=== PATIENT | male | born 1950 | race Caucasian/White ===

== ENCOUNTER 2025-01-24 10:46 | Day surgery (SDC) | payer OTHER, SELFPAY ==
[2025-01-24 11:02] VITALS: BP 143/90; PULSE 74; RESP 18; TEMP 36; O2SAT 97
[2025-01-24] MEDS: Tropicam./Phenyleph. (1/2.5%) 5 ML BTL OS ×3 (11:28→11:48)
--- NOTE | 2025-01-24 12:05 | W.ANESPRE ---
General Info Date of Service Date Performed: 01/24/25 Height: 6 ft 2 in Weight: 108.9 kg Body Mass Index (BMI): 30.8 Surgical Procedure: Operation Date: 01/24/25 13:40 Proposed Procedure Side Surgeon p Cataract Extraction with IOL Implant Left Timo Bullock MD Meds Allergies and Home Medications Allergies Allergy/AdvReac Type Severity Reaction Status Date / Time No Known Allergies Allergy Verified 01/24/25 11:29 Home Medication ?Medication ?Instructions ?Recorded allopurinol 300 mg tablet 300 mg PO DAILY 01/22/25 aspirin 81 mg capsule 81 mg PO DAILY 01/22/25 atorvastatin 10 mg tablet (Lipitor) 10 mg PO DAILY 01/22/25 clopidogrel 75 mg tablet 75 mg PO DAILY 01/22/25 diclofenac sodium 3 % topical gel 1 applic topical BID PRN 01/22/25 (Solaraze) eplerenone 25 mg tablet 25 mg PO DAILY 01/22/25 losartan 100 mg tablet (Cozaar) 100 mg PO DAILY 01/22/25 omega 9-neh-mrf-fish oil 1,000 mg 1 cap PO DAILY 01/22/25 (120 mg-180 mg) capsule (Fish Oil) terbinafine HCl 1 % topical cream 1 applic topical BID 01/22/25 terbinafine HCl 250 mg tablet 250 mg PO DAILY 01/22/25 tiotropium 2.5 mcg-olodaterol 2.5 2 puff inhalation DAILY 01/22/25 mcg/actuation mist for inhalation multivitamin (Daily Multi-Vitamin 1 tab PO DAILY 01/23/25 tablet) Current Visit Medications: Current Medications Generic Name Dose Route Start Last Admin Trade Name [id number] PRN Reason Stop Dose Admin Acetaminophen 1,000 mg 01/24/25 06:00 Acetaminophen 500 Mg Tab PO 02/23/25 05:59 Q4H PRN PRN Balanced Salt Solution 500 ml 01/24/25 06:00 Balanced Salt Soln.-Plus 500 Ml Bag OP 02/23/25 05:59 DIRECTED SHAWN Miscellaneous Medication 0 ml 01/24/25 06:00 Prednisolone 1%, Moxifloxacin 0.5%, Bromfenac 0.09% 5.6ml Btl OS 02/23/25 05:59 DIRECTED SHAWN Miscellaneous Medication 0 ml 01/24/25 06:00 01/24/25 11:48 Tropicam./Phenyleph. (1/2.5%) 5 Ml Btl OS 02/23/25 05:59 1 drp DIRECTED SHAWN Administration Tetracaine HCl 0 ml 01/24/25 06:00 Tetracaine 0.5% 4 Ml Btl OS 02/23/25 05:59 DIRECTED SHAWN PFSH Active Problems Active Problems: Problem Status Onset Code Posterior subcapsular age-related cataract of left eye Acute H25.042 Nuclear age-related cataract, left eye Acute H25.12 Medical History Medical History Gout Seborrheic keratosis Idiopathic peripheral neuropathy Erectile dysfunction Vitamin D deficiency Sensorineural hearing loss (SNHL) of both ears Elevated cholesterol with high triglycerides Cataract Left knee pain FLORES (dyspnea on exertion) Arthralgia of left ankle History of branch retinal vein occlusion (BRVO) Dry eye syndrome Angiopathy Retinal hole 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 ETD (eustachian tube dysfunction) Multiple lung nodules Thyroid nodule Gynecomastia Surgical History Surgical History H/O colonoscopy Tobacco Smoking/Tobacco Use Status: Former Tobacco Use Passive smoking exposure: No Alcohol Alcohol Intake: former Substance Use Substance use type: does not use Vital Signs and Lab Results Vital Signs Most Recent Vital Signs in EMR: Most Recent Vital Signs Temp Pulse Resp BP Pulse Ox 36 C L 74 18 143/90 H 97 01/24/25 11:02 01/24/25 11:02 01/24/25 11:02 01/24/25 11:02 01/24/25 11:02 Anesthesia Assessment and Plan Anesthesia History Personal History: No History of Anesthesia Complications Family History: No Family History of Anesthesia Complications Exercise Tolerance Exercise Tolerance: Metabolic Equivalents>4 Pertinent Negatives Pertinent Negatives: No Symptoms of GERD Cardiac & Pulmonary Exam Cardiac Exam: Normal S1/S2 Heart Sounds Pulmonary Exam: Clear Bilateral Breath Sounds Implantable Cardiac Device Does patient have a Pacemaker or an ICD?: No Airway Exam Known Difficult Airway: No Mallampati Class: 2 Mouth Opening: Normal (> 3cm) Thyromental Distance: Greater than 3 cm Neck Range of Motion: Full ROM Neck Circumference: Normal Teeth Condition: Normal Dentition ASA Classification ASA Score: ASA 3 Emergency Case?: No NPO Status NPO Status: NPO Clears >2 hours, Solids >8 hours Anesthesia Plan Resuscitation Status: Full Code Anesthesia Technique: MAC Anesthesia Airway Planned: Natural Airway Monitors Used: Standard Monitors
[2025-01-24 12:31] VITALS: BMI 30.8
[2025-01-24] MEDS: Povidone-Iodine Ophth 30 ML BTL (12:33)
[2025-01-24] MEDS: Tetracaine 0.5% 4 ML BTL OS (12:33)
[2025-01-24] MEDS: Phenylephrine/Lidocaine (15/10) MG/ML 1 ML VIAL (12:39)
[2025-01-24] MEDS: Lidocaine 1% Pres-Free 5 ML VIAL (12:40)
[2025-01-24] MEDS: Balanced Salt Soln.-PLUS 500 ML BAG OP (12:40)
[2025-01-24] MEDS: Duovisc Viscoelastic System EACH 1 EACH (12:40)
[2025-01-24] MEDS: Moxifloxacin-PF 1 MG/ML VIAL (12:50)
[2025-01-24] MEDS: Prednisolone 1%, Moxifloxacin 0.5%, Bromfenac 0.09% 5.6ML BTL OS (12:53)
[2025-01-24 13:00] VITALS: BP 159/92; PULSE 71; RESP 16; TEMP 36.5; O2SAT 97
--- NOTE | 2025-01-24 13:01 | W.PM.DSUDISC ---
Date of service: 01/24/25 Discharge Plan Disposition Patient Disposition: Home Discharge Details Attending Provider: Timo Bullock Primary Care Provider: [facility] Home Meds and New Rx's Prescriptions: No Action allopurinol 300 mg tablet 300 mg PO DAILY atorvastatin [Lipitor] 10 mg tablet 10 mg PO DAILY clopidogrel 75 mg tablet 75 mg PO DAILY diclofenac sodium [Solaraze] 3 % gel 1 applic topical BID PRN eplerenone 25 mg tablet 25 mg PO DAILY losartan [Cozaar] 100 mg tablet 100 mg PO DAILY tiotropium-olodaterol 2.5-2.5 mcg/actuation mist 2 puff inhalation DAILY terbinafine HCl 1 % cream 1 applic topical BID terbinafine HCl 250 mg tablet 250 mg PO DAILY aspirin 81 mg capsule 81 mg PO DAILY omega 2-waq-ijv-fish oil [Fish Oil] 1,000 (120-180) mg capsule 1 cap PO DAILY multivitamin [Daily Multi-Vitamin] Tablet 1 tab PO DAILY Discharge Instructions Stand Alone Forms: DSU Post-Op Shira Beltrán (DSU) DS: Diagnosis Discharge Diagnosis (1) Posterior subcapsular age-related cataract of left eye: Status: Resolved (2) Nuclear age-related cataract, left eye: Status: Resolved
--- NOTE | 2025-01-24 13:02 | ROE_ITS ---
Operative Note Operative Note PRE-OP DIAGNOSIS: Nuclear/posterior subcapsular cataract, left eye POST-OP DIAGNOSIS: same PROCEDURE: Cataract extraction using phacoemulsification with intraocular lens implant, left eye SURGEON: Timo Bullock ANESTHESIA TYPE: Local By Surgeon and MAC Refer to Anesthesia Record PATHOLOGY: none sent COMPLICATIONS: None Patient was transported to: same day Patient's condition: stable Implants: Benito Clareon [id number] Indications: Progressive decreased vision due to cataract, left eye Procedure Description: CATARACT SURGERY OPERATIVE REPORT PREOPERATIVE DIAGNOSIS: Nuclear/posterior subcapsular cataract, left eye POSTOPERATIVE DIAGNOSIS: Same OPERATION: Cataract extraction using phacoemulsification with posterior chamber intraocular lens implant, left eye. IOL: IOL Career Agent/Model: Benito Clareon [id number] IOL Power: + 22.0 diopters IOL Serial Number: [id number] Optic Diameter: 6.0mm Haptic/Overall Diameter: 13.0mm PHACO INFO: Benito Centurion Vision System with OZil and Active Fluidics Cumulative Dispersed Energy (CDE): 5.36 seconds SURGEON: Timo Bullock MD, THOM ANESTHESIA: Monitored Anesthesia Care (MAC), with local sub-tenon's anesthetic infiltration COMPLICATIONS: None SPECIMENS: None INDICATIONS FOR PROCEDURE: The patient is a 74-year-old male with history of diminished visual acuity in his left eye secondary to the development of nuclear/cortical cataract. He is significantly symptomatic that he desires cataract surgery and attempt to improv e and maximize his vision. The option of cataract surgery was offered to the patient and he wished to proceed. See office notes for detailed information. PROCEDURE: The correct surgical eye was identified and marked as the left eye and the pupil was dilated in the preoperative area using mydriatics and cycloplegics. The dilated pupil size was 7.0 mm. The patient elected to proceed without oral sedation. The patient was brought to the operating room where cardiopulmonary monitoring was instituted and surgical time-out was performed, confirming the correct operative eye and IOL power. Topical anesthesia was administered and ophthalmic povidone-iodine 5% was instilled into the conjunctival fornices. The mariama-ocular area was prepped with Betadine 10% solution and draped in the usual sterile fashion for intraocular surgery, including an aperture drape. A Tegaderm transparent film dressing was cut in half and used to cover the lashes and lid margins. Care was taken to sequester the lashes and lid margins under the Tegaderm dressing. A lid speculum was placed between the lids of the operative eye and the Benito Lux[employer] Revalia operating microscope was maneuvered into position. Cris scissors were then used to make a conjunctival buttonhole approximately 6mm posterior to the limbus in the inferonasal quadrant. Blunt dissection was carried out to expose bare sclera, and a blunt-tipped sub-tenon?s anesthesia cannula was introduced and passed posteriorly along the globe where non- preserved plain lidocaine was injected into posterior sub-Tenon?s space. A sideport knife was used to make a paracentesis port. Intraocular phenylephrine/lidocaine was injected into the anterior chamber. The anterior chamber was then filled with viscoelastic. A keratome knife was used construct a two-plane clear corneal tunnel extending 2.0mm into clear cornea. A flap was raised on the anterior capsule and capsulorhexis forceps were used to complete a continuous curvilinear capsulorhexis of 5.5 mm. Balanced salt solution was then used to perform cortical cleaving hydrodissection and nuclear hydrodelineation until the lens could be freely rotated within the capsular bag. The lens nucleus was then disassembled and removed within the capsular bag and iris plane using phacoemulsification. Residual cortical material was removed using the irrigation/aspiration handpiece. The posterior capsule was carefully polished to remove as much residual lens epithelial cells as safely possible. The capsular bag was then inflated and the anterior chamber deepened with viscoelastic. The lens implant described above was inserted into the capsular bag using the Benito Autonome Injector. A Kuglen hook was used to dial the IOL into position. Residual viscoelastic was then removed first from posterior to the IOL, then from the anterior chamber using the I/A handpiece. The lens implant was noted to center nicely within the capsular bag. The incisions were stromally hydrated, and the anterior chamber was reformed using BSS. Then 0.5cc of moxifloxacin 1.0mg/ml were injected into the capsular bag and anterior chamber. The incisions were checked with a Weck spear and found to be secure. Several drops of ophthalmic povidone-iodine 5% were then applied to the eye followed by two drops of combination steroid/NSAID/antibiotic solution. The drapes were rem sivakumar and a clear plastic protective eye shield was placed over the eye. The patient was then returned to Same Day Surgery in stable condition. Date of Procedure: 01/24/25
--- NOTE | 2025-01-24 14:05 | W.ANESPOSTOP ---
Postoperative Evaluation Date, Time and Location Date Performed: 01/24/25 Time Performed: 13:00 Patient Location: Day Surgery Unit Vital Signs Most Recent Imported Vital Signs: Most Recent Vital Signs Temp Pulse Resp BP Pulse Ox 36.5 C 71 16 159/92 H 97 01/24/25 13:00 01/24/25 13:00 01/24/25 13:00 01/24/25 13:00 01/24/25 13:00 Pain Score Most Recent Pain Score: Most Recent Pain Score Pain Level 0 01/24/25 13:00 Assessment Mental Status: Awake (Alert & Oriented to Patient Baseline) Airway and Respiratory Function: Patent airway with normal (patient baseline) respiratory exam Cardiovascular Function: Hemodynamically Stable Hydration Status: Adequately Hydrated Nausea & Vomiting: No Nausea or Vomiting Pain: Pt. Denies Any Pain Peripheral Nerve Block: Patient did not receive a nerve block
== END 2025-01-24 13:17 | disposition home or self-care (01) ==
LOC: SUR 10:51
PROVIDERS: Visit Provider Ophthalmology
PROC: (CPT 66984; principal; 2025-01-24 13:30)
DX: H25.042 Posterior subcapsular polar age-related cataract, left eye (principal); H25.12 Age-related nuclear cataract, left eye
CPT/HCPCS: 66984; 00123; V2632; J2003

== ENCOUNTER 2025-02-07 13:53 | Day surgery (SDC) | payer OTHER, SELFPAY ==
[2025-02-07 14:20] VITALS: BP 148/93; PULSE 68; RESP 16; TEMP 36.4; O2SAT 97
[2025-02-07] MEDS: Tropicam./Phenyleph. (1/2.5%) 5 ML BTL OD ×3 (14:23→14:37)
[2025-02-07 15:20] VITALS: BMI 30.7
--- NOTE | 2025-02-07 15:20 | W.ANESPRE ---
General Info Date of Service Date Performed: 02/07/25 Height: 6 ft 2 in Weight: 108.5 kg Body Mass Index (BMI): 30.7 Surgical Procedure: Operation Date: 02/07/25 14:25 Proposed Procedure Side Surgeon p Cataract Extraction with IOL Implant Right Timo Bullock MD Actual Procedure Side Surgeon p Cataract Extraction with IOL Implant Right Timo Bullock MD Pre-Op Diagnosis Post-Op Diagnosis CATARACT OD CATARACT OD Meds Allergies and Home Medications Allergies Allergy/AdvReac Type Severity Reaction Status Date / Time No Known Allergies Allergy Verified 02/07/25 14:29 Home Medication ?Medication ?Instructions ?Recorded allopurinol 300 mg tablet 300 mg PO DAILY 01/22/25 aspirin 81 mg capsule 81 mg PO DAILY 01/22/25 atorvastatin 10 mg tablet (Lipitor) 10 mg PO DAILY 01/22/25 clopidogrel 75 mg tablet 75 mg PO DAILY 01/22/25 diclofenac sodium 3 % topical gel 1 applic topical BID PRN 01/22/25 (Solaraze) eplerenone 25 mg tablet 25 mg PO DAILY 01/22/25 losartan 100 mg tablet (Cozaar) 100 mg PO DAILY 01/22/25 omega 1-dhj-fti-fish oil 1,000 mg 1 cap PO DAILY 01/22/25 (120 mg-180 mg) capsule (Fish Oil) terbinafine HCl 1 % topical cream 1 applic topical BID 01/22/25 terbinafine HCl 250 mg tablet 250 mg PO DAILY 01/22/25 tiotropium 2.5 mcg-olodaterol 2.5 2 puff inhalation DAILY 01/22/25 mcg/actuation mist for inhalation multivitamin (Daily Multi-Vitamin 1 tab PO DAILY 01/23/25 tablet) ascorbic acid (vitamin C) 500 mg 500 mg PO DAILY 02/07/25 tablet (C-500) Current Visit Medications: Current Medications Generic Name Dose Route Start Last Admin Trade Name Freq PRN Reason Stop Dose Admin Acetaminophen 1,000 mg 02/07/25 07:10 Acetaminophen 500 Mg Tab PO 03/09/25 07:09 Q4H PRN PRN Balanced Salt Solution 500 ml 02/07/25 07:10 Balanced Salt Soln.-Plus 500 Ml Bag OP 03/09/25 07:09 DIRECTED SHAWN Miscellaneous Medication 0 ml 02/07/25 07:10 Prednisolone 1%, Moxifloxacin 0.5%, Bromfenac 0.09% 5.6ml Btl OD 03/09/25 07:09 DIRECTED SHAWN Miscellaneous Medication 0 ml 02/07/25 07:10 02/07/25 14:37 Tropicam./Phenyleph. (1/2.5%) 5 Ml Btl OD 03/09/25 07:09 1 drp DIRECTED SHAWN Administration Tetracaine HCl 0 ml 02/07/25 07:10 Tetracaine 0.5% 4 Ml Btl OD 03/09/25 07:09 DIRECTED SHAWN PFSH Active Problems Active Problems: Problem Status Onset Code Posterior subcapsular age-related cataract, right eye Acute H25.041 Nuclear age-related cataract, right eye Acute H25.11 Posterior subcapsular age-related cataract of left eye Resolved H25.042 Nuclear age-related cataract, left eye Resolved H25.12 Medical History Medical History Gout Seborrheic keratosis Idiopathic peripheral neuropathy Erectile dysfunction Vitamin D deficiency Sensorineural hearing loss (SNHL) of both ears Elevated cholesterol with high triglycerides Cataract Left knee pain FLORES (dyspnea on exertion) Arthralgia of left ankle History of branch retinal vein occlusion (BRVO) Dry eye syndrome Angiopathy Retinal hole 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 ETD (eustachian tube dysfunction) Multiple lung nodules Thyroid nodule Gynecomastia Surgical History Surgical History H/O colonoscopy Tobacco Smoking/Tobacco Use Status: Former Tobacco Use Passive smoking exposure: No Alcohol Alcohol Intake: former Substance Use Substance use type: does not use Vital Signs and Lab Results Vital Signs Most Recent Vital Signs in EMR: Most Recent Vital Signs Temp Pulse Resp BP Pulse Ox 36.4 C L 68 16 148/93 H 97 02/07/25 14:20 02/07/25 14:20 02/07/25 14:20 02/07/25 14:20 02/07/25 14:20 Anesthesia Assessment and Plan Anesthesia History Personal History: No History of Anesthesia Complications Family History: No Family History of Anesthesia Complications Exercise Tolerance Exercise Tolerance: Metabolic Equivalents>4 Pertinent Negatives Pertinent Negatives: No Symptoms of GERD Cardiac & Pulmonary Exam Cardiac Exam: Normal S1/S2 Heart Sounds Pulmonary Exam: Clear Bilateral Breath Sounds Implantable Cardiac Device Does patient have a Pacemaker or an ICD?: No Airway Exam Known Difficult Airway: No Mallampati Class: 2 Mouth Opening: Normal (> 3cm) Thyromental Distance: Greater than 3 cm Neck Range of Motion: Full ROM Neck Circumference: Normal Teeth Condition: Normal Dentition ASA Classification ASA Score: ASA 3 Emergency Case?: No NPO Status NPO Status: NPO Clears >2 hours, Solids >8 hours Anesthesia Plan Resuscitation Status: Full Code Anesthesia Technique: MAC Anesthesia Airway Planned: Natural Airway Monitors Used: Standard Monitors
[2025-02-07] MEDS: Moxifloxacin-PF 1 MG/ML VIAL (15:23)
[2025-02-07] MEDS: Balanced Salt Soln.-PLUS 500 ML BAG OP (15:23)
[2025-02-07] MEDS: Prednisolone 1%, Moxifloxacin 0.5%, Bromfenac 0.09% 5.6ML BTL OD (15:24)
[2025-02-07] MEDS: Tetracaine 0.5% 4 ML BTL OD (15:25)
[2025-02-07] MEDS: Duovisc Viscoelastic System EACH 1 EACH (15:26)
[2025-02-07] MEDS: Lidocaine 1% Pres-Free 5 ML VIAL (15:27)
[2025-02-07] MEDS: Povidone-Iodine Ophth 30 ML BTL (15:28)
[2025-02-07] MEDS: Phenylephrine/Lidocaine (15/10) MG/ML 1 ML VIAL (15:28)
--- NOTE | 2025-02-07 15:44 | W.PM.DSUDISC ---
Date of service: 02/07/25 Discharge Plan Disposition Patient Disposition: Home Condition: Good Discharge Details Attending Provider: Timo Bullock Primary Care Provider: Unknown,Unknown Home Meds and New Rx's Prescriptions: No Action allopurinol 300 mg tablet 300 mg PO DAILY atorvastatin [Lipitor] 10 mg tablet 10 mg PO DAILY clopidogrel 75 mg tablet 75 mg PO DAILY diclofenac sodium [Solaraze] 3 % gel 1 applic topical BID PRN eplerenone 25 mg tablet 25 mg PO DAILY losartan [Cozaar] 100 mg tablet 100 mg PO DAILY tiotropium-olodaterol 2.5-2.5 mcg/actuation mist 2 puff inhalation DAILY terbinafine HCl 1 % cream 1 applic topical BID terbinafine HCl 250 mg tablet 250 mg PO DAILY aspirin 81 mg capsule 81 mg PO DAILY omega 8-byp-uzc-fish oil [Fish Oil] 1,000 (120-180) mg capsule 1 cap PO DAILY multivitamin [Daily Multi-Vitamin] Tablet 1 tab PO DAILY ascorbic acid (vitamin C) [C-500] 500 mg tablet 500 mg PO DAILY Discharge Instructions Stand Alone Forms: DSU Post-Op Shira Beltrán (DSU) Activity:: Activity as Tolerated Remove Dressings/Wound Care:: 24 hours Shower/Bathe:: 24 hours Diet:: As Tolerated Discharge Orders Discharge Orders: Discharge Order (Routine); Ordered 02/06/25 Ordered By: Timo Bullock DS: Diagnosis Discharge Diagnosis (1) Posterior subcapsular age-related cataract, right eye: Status: Resolved (2) Nuclear age-related cataract, right eye: Status: Resolved
[2025-02-07 15:45] VITALS: BP 139/81; PULSE 69; RESP 16; TEMP 36.5; O2SAT 97
--- NOTE | 2025-02-07 15:45 | W.PM.OP ---
Operative Note Operative Note PRE-OP DIAGNOSIS: Nuclear/posterior subcapsular cataract, right eye POST-OP DIAGNOSIS: same PROCEDURE: Cataract extraction using phacoemulsification with intraocular lens implant, right eye SURGEON: Timo Bullock ANESTHESIA TYPE: Local By Surgeon and MAC Refer to Anesthesia Record ESTIMATED BLOOD LOSS: 0 PATHOLOGY: none sent COMPLICATIONS: None Patient was transported to: same day Patient's condition: stable Implants: Benito Clareon [id number] Indications: Progressive decreased vision due to cataract, right eye Procedure Description: CATARACT SURGERY OPERATIVE REPORT PREOPERATIVE DIAGNOSIS: Nuclear/posterior subcapsular cataract, right eye POSTOPERATIVE DIAGNOSIS: Same OPERATION: Cataract extraction using phacoemulsification with posterior chamber intraocular lens implant, right eye. IOL: IOL Jar Capper/Model: Benito Clareon [id number] IOL Power: + 21.5 diopters IOL Serial Number: [id number] Optic Diameter: 6.0mm Haptic/Overall Diameter: 13.0mm PHACO INFO: Benito Mobile Active Defenseurion Vision System with OZil and Active Fluidics Cumulative Dispersed Energy (CDE): 4.11 seconds SURGEON: Timo Bullock MD, THOM ANESTHESIA: Monitored Anesthesia Care (MAC), with local sub-tenon's anesthetic infiltration COMPLICATIONS: None SPECIMENS: None INDICATIONS FOR PROCEDURE: The patient is a 74-year-old male with history of diminished visual acuity in both eyes secondary to the development of bilateral nuclear/posterior subcapsular cataract. He has already undergone cataract surgery in the left eye and is doing well postoperatively. He now presents for cataract surgery in the right eye. See office notes for detailed information. PROCEDURE: The correct surgical eye was identified and marked as the right eye and the pupil was dilated in the preoperative area using mydriatics and cycloplegics. The dilated pupil size was 4.5 mm. The patient elected to proceed without oral sedation. The patient was brought to the operating room where cardiopulmonary monitoring was instituted and surgical time-out was performed, confirming the correct operative eye and IOL power. Topical anesthesia was administered and ophthalmic povidone-iodine 5% was instilled into the conjunctival fornices. The mariama-ocular area was prepped with Betadine 10% solution and draped in the usual sterile fashion for intraocular surgery, including an aperture drape. A Tegaderm transparent film dressing was cut in half and used to cover the lashes and lid margins. Care was taken to sequester the lashes and lid margins under the Tegaderm dressing. A lid speculum was placed between the lids of the operative eye and the Benito Lux[employer] Revalia operating microscope was maneuvered into position. Cris scissors were then used to make a conjunctival buttonhole approximately 6mm posterior to the limbus in the inferonasal quadrant. Blunt dissection was carried out to expose bare sclera, and a blunt-tipped sub-tenon?s anesthesia cannula was introduced and passed posteriorly along the globe where non-preserved plain lidocaine was injected into posterior sub-Tenon?s space. A sideport knife was used to make a paracentesis port. Intraocular phenylephrine/lidocaine was injected into the anterior chamber. The anterior chamber was then filled with viscoelastic. A keratome knife was used to construct a two--plane clear corneal tunnel extending 2.0mm into clear cornea. A flap was raised on the anterior capsule and capsulorhexis forceps were used to complete a continuous curvilinear capsulorhexis of 4.5 mm. Balanced salt solution was then used to perform cortical cleaving hydrodissection and nuclear hydrodelineation until the lens could be freely rotated within the capsular bag. The lens nucleus was then disassembled and removed within the capsular bag and iris plane using phacoemulsification. Residual cortical material was removed using the I/A handpiece. The posterior capsule was carefully polished to remove as much residual lens epithelial cells as safely possible. The capsular bag was then inflated and the anterior chamber deepened with cohesive viscoelastic. The lens implant described above was inserted into the capsular bag using the Benito Autonome Injector. A Kuglen hook was used to dial the IOL into position. Residual viscoelastic was then removed first from posterior to the IOL, then from the anterior chamber using the I/A handpiece. The lens implant was noted to center nicely within the capsular bag. The incisions were stromally hydrated, and the anterior chamber was reformed using BSS. Then 0.5cc of moxifloxacin 1.0mg/ml were injected into the capsular bag and anterior chamber. The incisions were checked with a Weck spear and found to be secure. Several drops of ophthalmic povidone-iodine 5% were then applied to the eye followed by two drops of combination steroid/NSAID/antibiotic solution. The drapes were removed and a clear plastic protective eye shield was placed over the eye. The patient was then returned to Same Day Surgery in stable condition. Date of Procedure: 02/07/25
--- NOTE | 2025-02-07 16:02 | W.ANESPOSTOP ---
Postoperative Evaluation Date, Time and Location Date Performed: 02/07/25 Time Performed: 15:45 Patient Location: Day Surgery Unit Vital Signs Most Recent Imported Vital Signs: Most Recent Vital Signs Temp Pulse Resp BP Pulse Ox 36.5 C 69 16 139/81 97 02/07/25 15:45 02/07/25 15:45 02/07/25 15:45 02/07/25 15:45 02/07/25 15:45 Pain Score Most Recent Pain Score: Most Recent Pain Score Pain Level 0 02/07/25 15:45 Assessment Mental Status: Awake (Alert & Oriented to Patient Baseline) Airway and Respiratory Function: Patent airway with normal (patient baseline) respiratory exam Cardiovascular Function: Hemodynamically Stable Hydration Status: Adequately Hydrated Nausea & Vomiting: No Nausea or Vomiting Pain: Pt. Denies Any Pain Peripheral Nerve Block: Other (Local by Dr. Bullock)
== END 2025-02-07 15:55 | disposition home or self-care (01) ==
LOC: SUR 13:54
PROVIDERS: Visit Provider Ophthalmology
PROC: (CPT 66984; principal; 2025-02-07 14:15)
DX: H25.041 Posterior subcapsular polar age-related cataract, right eye (principal); H25.11 Age-related nuclear cataract, right eye; Z98.42 Cataract extraction status, left eye
CPT/HCPCS: 66984; 00123; V2632; J2003